=== PATIENT | female | born 1950 | race Caucasian/White ===

== ENCOUNTER → 2021-02-16 | Outpatient (CLI) | payer MEDICARE, BC ==
--- NOTE | 2021-02-17 11:52 | MM ---
Reason for exam: screening (asymptomatic). Last mammogram was performed 17 years and 5 months ago. History: Patient is postmenopausal and had first child at age 38. Physical Findings: A clinical breast exam by your physician is recommended on an annual basis and results should be correlated with mammographic findings. MG Screening Mammo w CAD Bilateral CC and MLO view(s) were taken. Prior study comparison: September 10, 2003, bilateral screening mammogram. September 02, 2002, bilateral screening mammogram. There are scattered fibroglandular densities. Right nodule upper outer quadrant posterior depth. ASSESSMENT: Incomplete: need additional imaging evaluation, BI-RAD 0 RECOMMENDATION: Special view mammogram of the right breast. If lesion persists on supplemental views, image directed ultrasound is recommended. [facility] will attempt to contact patient to return for supplemental views and ultrasound if indicated.
== END | disposition home or self-care (01) ==
LOC: RADMAMWWP 08:01
PROVIDERS: ATTEND Family Medicine
DX: Z12.31 Encounter for screening mammogram for malignant neoplasm of breast (principal)
CPT/HCPCS: 77067

== ENCOUNTER → 2021-02-24 | Outpatient (CLI) | payer MEDICARE, BC ==
--- NOTE | 2021-02-24 12:14 | MM ---
Reason for exam: additional evaluation requested from abnormal screening. Last mammogram was performed less than 1 month ago. History: Patient is postmenopausal and had first child at age 38. Physical Findings: Nurse did not find any significant physical abnormalities on exam. MG Work Up Mamm w CAD RT Spot compression CC, spot compression MLO, and LM view(s) were taken of the right breast. Prior study comparison: February 16, 2021, bilateral MG screening mammo w CAD. September 10, 2003, bilateral screening mammogram. There are scattered fibroglandular densities. Tiny 4mm grouped nodules right axillary tail, 10-11 o'clock, 7cm from nipple. These results were verbally communicated with the patient and result sheet given to the patient on 02/24/21. ASSESSMENT: Incomplete: need additional imaging evaluation, BI-RAD 0 RECOMMENDATION: Ultrasound of the right breast.
--- NOTE | 2021-02-24 12:15 | USB ---
Reason for exam: additional evaluation requested from abnormal screening. History: Patient is postmenopausal and had first child at age 38. US Breast Workup Limited RT Right limited breast ultrasound including focal area of concern, retroareolar and axilla demonstrates no cystic or solid lesion seen. No sonographic finding. These results were verbally communicated with the patient and result sheet given to the patient on 02/24/21. ASSESSMENT: Probably benign, BI-RAD 3 RECOMMENDATION: Follow-up diagnostic mammogram of the right breast in 6 months.
== END | disposition home or self-care (01) ==
LOC: RADMAMWWP 10:02
PROVIDERS: ATTEND Family Medicine
DX: N63.10 Unspecified lump in the right breast, unspecified quadrant (principal); Z78.0 Asymptomatic menopausal state
CPT/HCPCS: 77065

== ENCOUNTER → 2021-06-30 | Outpatient (CLI) | payer MEDICARE, BC ==
--- NOTE | 2021-06-30 08:43 | BD ---
EXAMINATION TYPE: Axial Bone Density DATE OF EXAM: 06/30/2021 COMPARISON: NONE CLINICAL HISTORY: 70 YR OLD FEMALE......ICD-10 CODE: Z13.820 OSTEOPOROSIS SCREENING Height: 59.9 Weight: 197 FRAX RISK QUESTIONS: NOTHING ADDITIONAL TO ADD HERE RISK FACTORS HISTORY OF: Postmenopausal woman: YES, AT ABOUT AGE 58 Hyperparathyroidism: NO Adrenal Insufficiency: NO MEDICATIONS: Additional Medications: STATIN FOR CHOLESTEROL, VIT D Additional History: NOTHING ADDITIONAL EXAM MEASUREMENTS: Bone mineral densitometry was performed using the Verastem System. Bone mineral density as measured about the Lumbar spine is: ----- L1-L4(G/cm2): 1.311 T Score Values are as follows: ----- L1: 0.7 ----- L2: 1.1 ----- L3: 1.6 ----- L4: 0.8 ----- L1-L4: 1.1 Bone mineral density FIRST DEXA.......BASELINE STUDY Bone mineral density about the R hip (g/cm2): 0.943 Bone mineral density about the L hip (g/cm2): 1.065 T Score values are as follows: -----R Neck: -0.6 -----L Neck: -0.7 -----R Total: -0.5 -----L Total: 0.5 Bone mineral density BASELINE STUDY FRAX%s: THERE IS A 7.3% CHANCE FOR A MAJOR OSTEOPOROTIC FX AND A 0.5% FOR HIP.....PROBABILITY FOR FX IN 10 YRS TIME IMPRESSION: Normal (Values between +1 and -1 indicate normal bone mass). Consider repeating this study in 5 year s or sooner if there is some new clinical indication. NOTE: T-SCORE=SD OF THE YOUNG ADULT MEAN.
== END | disposition home or self-care (01) ==
LOC: RADBDWWP 07:43
PROVIDERS: ATTEND Family Medicine
DX: Z13.820 Encounter for screening for osteoporosis (principal)
CPT/HCPCS: 77080

== ENCOUNTER → 2021-08-28 | Outpatient (CLI) | payer MEDICARE, BC ==
--- NOTE | 2021-08-28 14:39 | MM ---
Reason for exam: follow-up at short interval from prior study. Last mammogram was performed 6 months ago. History: Patient is postmenopausal and had first child at age 38. Physical Findings: Nurse did not find any significant physical abnormalities on exam. MG 3D Diag Mammo W/Cad RT CC and MLO view(s) were taken of the right breast. Prior study comparison: February 24, 2021, right breast MG work up mamm w CAD RT. February 16, 2021, bilateral MG screening mammo w CAD. The breast tissue is heterogeneously dense. This may lower the sensitivity of mammography. There is no discrete abnormality including area of concern. These results were verbally communicated with the patient and result sheet given to the patient on 08/28/21. ASSESSMENT: Benign, BI-RAD 2 RECOMMENDATION: Return to routine screening mammogram schedule for both breasts. Back on schedule.
== END | disposition home or self-care (01) ==
LOC: RADMAMWWP 14:00
PROVIDERS: ATTEND Family Medicine
DX: R92.8 Other abnormal and inconclusive findings on diagnostic imaging of breast (principal)
CPT/HCPCS: 77065; G0279; 77061

== ENCOUNTER → 2022-02-20 | Outpatient (CLI) | payer MEDICARE, BC ==
--- NOTE | 2022-02-21 08:00 | MM ---
Reason for Exam: Screening (asymptomatic). Last screening mammogram was performed 12 month(s) ago. Patient History: Menarche at age 13. First Full-Term at age 38. Late child-bearing (after 30). Postmenopausal. Risk Values: Damaris 5 year model risk: 2.6%. NCI Lifetime model risk: 7.9%. Film Views: Bilateral CC views were taken. Bilateral MLO views were taken. Prior Study Comparison: 02/16/2021 Bilateral Screening Mammogram, [facility]. 02/24/2021 Right Diagnostic Mammogram, [facility]. 08/28/2021 Right Diagnostic Mammogram, [facility]. Tissue Density: There are scattered fibroglandular densities. Findings: Analyzed By CAD. There is no suspicious group of microcalcifications or new suspicious mass in either breast. Overall Assessment: Benign, BI-RAD 2 Management: Screening Mammogram of both breasts in 1 year. A clinical breast exam by your physician is recommended on an annual basis and results should be correlated with mammographic findings. Electronically signed and approved by: Raimundo Cardona M.D. Radiologis
== END | disposition home or self-care (01) ==
LOC: RADMAMWWP 07:25
PROVIDERS: ATTEND Family Medicine
DX: Z12.31 Encounter for screening mammogram for malignant neoplasm of breast (principal); Z00.00 Encounter for general adult medical examination without abnormal findings
CPT/HCPCS: 77063; 77067

== ENCOUNTER → 2023-03-19 | Outpatient (CLI) | payer MEDICARE, BC ==
--- NOTE | 2023-03-20 08:54 | MM ---
Reason for Exam: Screening (asymptomatic). Last mammogram was performed 1 year(s) and 1 month(s) ago. Patient History: Menarche at age 13. First Full-Term at age 38. Late child-bearing (after 30). Postmenopausal. Risk Values: Damaris 5 year model risk: 2.6%. NCI Lifetime model risk: 7.6%. Prior Study Comparison: 02/24/2021 Right Diagnostic Mammogram, [facility]. 08/28/2021 Right Diagnostic Mammogram, [facility]. 02/20/2022 Bilateral MG 3D screening mammo w/cad, [facility]. Tissue Density: There are scattered fibroglandular densities. Findings: Analyzed By CAD. There is no suspicious group of microcalcifications or new suspicious mass in either breast. Overall Assessment: Negative, BI-RAD 1 Management: Screening Mammogram of both breasts in [address] [facility] will attempt to contact patient to return for supplemental views and ultrasound if indicated. Patient should continue monthly self-breast exams. A clinical breast exam by your physician is recommended on an annual basis. This exam should not preclude additional follow-up of suspicious palpable abnormalities. Note on Damaris scores and lifetime risk: 1. A Damaris score greater than 3% is considered moderate risk. If this is the case, consider specialist referral to assess eligibility for a risk reducing agent. 2. If overall lifetime risk for the development of breast cancer is 20% or higher, the patient may qualify for future screening with alternating mammogram and breast MRI. Electronically signed and approved by: Markie Olmos DO
== END | disposition home or self-care (01) ==
LOC: RADMAMWWP 06:59
PROVIDERS: ATTEND Family Medicine
DX: Z12.31 Encounter for screening mammogram for malignant neoplasm of breast (principal); Z78.0 Asymptomatic menopausal state
CPT/HCPCS: 77063; 77067

== ENCOUNTER → 2024-03-20 | Outpatient (CLI) | payer MEDICARE, BC ==
--- NOTE | 2024-03-23 18:31 | MM ---
Reason for Exam: Screening (asymptomatic). Last screening mammogram was performed 12 month(s) ago. Patient History: Menarche at age 13. First Full-Term at age 38. Late child-bearing (after 30). Postmenopausal. Risk Values: Damaris 5 year model risk: 2.6%. NCI Lifetime model risk: 7.2%. Prior Study Comparison: 08/28/2021 Right Diagnostic Mammogram, [facility]. 02/20/2022 Bilateral MG 3D screening mammo w/cad, [facility]. 03/19/2023 Bilateral MG 3D screening mammo w/cad, [facility]. Tissue Density: There are scattered areas of fibroglandular density. Findings: Analyzed By CAD. There is no suspicious group of microcalcifications or new suspicious mass in either breast. Overall Assessment: Negative, BI-RAD 1 Management: Screening Mammogram of both breasts in 1 year. . Patient should continue monthly self-breast exams. A clinical breast exam by your physician is recommended on an annual basis. This exam should not preclude additional follow-up of suspicious palpable abnormalities. Note on Damaris scores and lifetime risk: 1. A Damaris score greater than 3% is considered moderate risk. If this is the case, consider specialist referral to assess eligibility for a risk reducing agent. 2. If overall lifetime risk for the development of breast cancer is 20% or higher, the patient may qualify for future screening with alternating mammogram and breast MRI. Electronically signed and approved by: Simone Dumont M.D. Radiologist
== END | disposition home or self-care (01) ==
LOC: RADMAMWWP 06:59
PROVIDERS: ATTEND Family Medicine
DX: Z12.31 Encounter for screening mammogram for malignant neoplasm of breast (principal); Z78.0 Asymptomatic menopausal state
CPT/HCPCS: 77063; 77067